=== PATIENT | male | born 1985 ===

== ENCOUNTER 2020-05-15 16:45 | Emergency (ER) | payer OTHER ==
--- NOTE | 2020-05-15 18:16 | ER ---
Nurse's Notes [facility] Name: Dmitriy Wheeler Age: 34 yrs Sex: Male : 1985 Arrival Date: 05/15/2020 Time: 16:48 Bed Waiting Private MD: Diagnosis: ED Course: 05/15 16:48 Patient arrived in ED. mr 18:15 Naman Geiger MD is Attending Physician. aa5 Administered Medications: No medications were administered Outcome: 18:15 Patient left the ED. aa5 Signatures: Kimi Luciano Audri, RN RN aa5
== END 2020-05-15 18:15 | disposition left against medical advice (07) ==
LOC: ER 16:45
DX: Z02.9 Encounter for administrative examinations, unspecified (principal)